=== PATIENT | male | born 1995 | race Caucasian/White ===

== ENCOUNTER 2016-12-18 18:16 | Emergency (ER) | payer OTHER ==
[2016-12-18 18:27] VITALS: TEMP 98; BMI 19.2
--- NOTE | 2016-12-18 19:27 | PDOC ---
Attending Attestation - Resident Resident Name: Sav Gibbs - HPI HPI: 12/18/16 21:24 Pt comes with abd pain. No fever, N/D/V and he is eating without diffuclty. No dysuria, but he has a hx of gallstones. - Physicial Exam PE: 12/18/16 21:25 Abd soft Nt ND and no rebound or guarding. No flank pain and no fever. Rest of exam normal also. Pupils are bilaterally teardrop shaped since . - Medical Decision Making 12/18/16 21:26 CBC and COMP and vitals normal. UA pending. Abd XR pending 12/18/16 23:53 Patient Name: Ada Beth THIS IS A PRELIMINARYREPORT FROM [facility] EXAM: X-ray abdomen and pelvis IMAGES: 3 INDICATION: Diarrhea and abdominal pain DATE OF SERVICE: 2016-12-18 21:34:07.0 COMPARISON: none FINDINGS: Lung bases are clear. There is a normal bowel gas pattern. No abnormal calcifications. They right upper quadrant densities appear to represent partially calcified cartilage of an anterior rib. No solid organomegaly. Bones and soft tissues are normal. IMPRESSION: No evidence of acute pathology. THIS DOCUMENT HAS BEEN ELECTRONICALLY SIGNED
[2016-12-18] MEDS ORDERED: SODIUM CHLORIDE 0.9% 1000 ML INFUS.BAG IV ONE (19:36)
--- NOTE | 2016-12-18 19:52 | PDOC ---
History of Present Illness - General Chief Complaint: Pain Stated Complaint: ABDOMINAL PAIN Time Seen by Provider: 12/18/16 19:09 History Source: Patient Exam Limitations: No Limitations - History of Present Illness Initial Comments: 12/18/16 19:44 The patient is a 21M with a PMH of asthma who presents with recurrent abdominal pain. The patient describes the pain as diffuse, periumbilical pain which started 3 hours ago, came on acutely, is described as a pressure-like pain and has been constant. The pain is a 8/10 and radiates to his back. He denies any sick contacts, recent travel, and eating weird foods. The pain is not positional. The patient came in last year for a similar complaint but states that it is worse this year. He has a history of kidney stones. He had 1 bout of diarrhea today which was not bloody. PSH: testicular surgery Social: Smokes hookah, no drinking or drugs Allergies: NKDA Past History - Past Medical History Allergies/Adverse Reactions: Allergies Allergy/AdvReac Type Severity Reaction Status Date / Time No Known Allergies Allergy Verified 12/18/16 18:27 Home Medications: Ambulatory Orders Mag Hydrox/Al Hydrox/Simeth [Antacid Liquid] 355 ml PO ASDIR 11/07/15 Ondansetron [Zofran Odt -] 4 mg SL TID #6 od.tablet 11/07/15 Asthma: Yes - Psycho/Social/Smoking Cessation Hx Suicidal Ideation: No Smoking History: Never smoked Information on smoking cessation initiated: No Substance Use Type: None Review of Systems - Review of Systems Able to Perform ROS?: Yes Is the patient limited German proficient: No Constitutional: No: Chills, Fever, Loss of Appetite, Night Sweats, Unintentional Wgt. Loss Respiratory: No: Cough, Shortness of Breath Cardiac (ROS): No: Chest Pain ABD/GI: Yes: Diarrhea. No: Constipated, Nausea, Poor Appetite, Vomiting, Indigestion : No: Burning, Dysuria, Discharge, Frequency, Hematuria, Testicular Pain *Physical Exam - Vital Signs Last Vital Signs Temp Pulse Resp BP Pulse Ox 98 F 74 18 117/65 99 12/18/16 18:24 12/18/16 18:24 12/18/16 18:24 12/18/16 18:24 12/18/16 18:24 - Physical Exam General Appearance: Yes: Nourished, Appropriately Dressed. No: Apparent Distress Respiratory/Chest: positive: Lungs Clear, Normal Breath Sounds. negative: Chest Tender, Respiratory Distress Cardiovascular: positive: Regular Rhythm, Regular Rate, S1, S2 Gastrointestinal/Abdominal: positive: Normal Bowel Sounds, Flat, Guarding. negative: Tender, Pulsatile Mass Musculoskeletal: positive: CVA Tenderness (L) Integumentary: positive: Dry, Warm Neurologic: positive: Fully Oriented, Alert, Normal Mood/Affect, Normal Response ED Treatment Course - LABORATORY CBC & Chemistry Diagram: 12/18/16 20:00 12/18/16 20:00 Medical Decision Making - Medical Decision Making 12/18/16 20:01 The patient is a 21M with a PMH of asthma who has recurrent abdominal pain which has worsened acutely. The patient is laying comfortably in bed. In my exam , he was very guarded so I called my attending immediately. His abdomen was soft and nontender for my attending. I was worried about appendicitis or testicular torsion. He has no complaints. I have ordered basic labs and a UA. I will do a flat plate image of his abdomen to r/o acute pathology. 12/18/16 23:47 Patient's labs WNL. Imaging was sent to imaging work environment safety inspector. Questionable hepatomegaly/colon pathology. I had an extended discussion with the patient regarding follow up with a GI doctor. The patient expressed concern because he lives far from home. I informed him to get a new PCP at school and have the referral done there. Patient desired a sandwich and is ready for d/c. *DC/Admit/Observation/Transfer Diagnosis at time of Disposition: Abdominal pain Qualifiers: Abdominal location: periumbilical Qualified Code(s): R10.33 - Periumbilical pain - Discharge Dispostion Disposition: HOME Condition at time of disposition: Stable Admit: No - Patient Instructions Printed Discharge Instructions: DI for Abdominal Pain-Adult Additional Instructions: Please return to the ER if symptoms persist, worsen, or new symptoms arise. - Attestations Physician Attestion: 12/18/16 23:49 I, Dr. Sav Gibbs, attest that this document has been prepared under my direction and personally reviewed by me in its entirety. I further attest, that it accurately reflects all work, treatment, procedures and medical decision -making performed by me.
[2016-12-18 20:52] LABS: MCH 30.8 pg (25.7-33.7); MCHC 33.5 g/dl (32.0-35.9); MEAN CELL VOLUME 91.9 fl (80-96); MEAN PLT VOLUME 7.7 fl (7.5-11.1); PLATELET COUNT 227 K/MM3 (134-434); RDW 12.2 % (11.9-15.9); WHITE BLOOD COUNT 8.1 K/mm3 (4.0-10.0)
[2016-12-18 21:16] LABS: ALBUMIN 4.5 g/dl (3.4-5.0); ANION GAP 4 (8-16); CALCIUM 9.1 mg/dL (8.5-10.1); CO2 32 mmol/L (21-32); GLUCOSE,RANDOM 87 mg/dL (74-106); SGOT/AST 29 U/L (15-37); SGPT/ALT 29 U/L (12-78)
[2016-12-18 21:18] LABS: ALK PHOS 75 U/L (45-117); BILIRUBIN,TOTAL 0.8 mg/dL (0.2-1.0); CREATININE 0.8 mg/dL (0.7-1.3); TOT PROT 7.5 g/dl (6.4-8.2)
[2016-12-18 23:53] LABS: URINE APPEARANCE CLEAR; URINE BILIRUBIN NEGATIVE (NEGATIVE); URINE BLOOD NEGATIVE (NEGATIVE); URINE COLOR YELLOW; URINE GLUCOSE (UA) NEGATIVE (NEGATIVE); URINE KETONE NEGATIVE (NEGATIVE); URINE LEUK ESTERASE NEGATIVE (NEGATIVE); URINE NITRITE NEGATIVE (NEGATIVE); URINE PROTEIN NEGATIVE (NEGATIVE); URINE UROBILINOGEN NEGATIVE mg/dL (0.2-1.0)
[2016-12-18] MEDS ORDERED: LACTULOSE 20 GM/30 ML UDC (FOR ORAL USE ONLY) PO ONE (23:54)
[2016-12-18 23:58] VITALS: BP 120/70; PULSE 76
[2016-12-19] MEDS ORDERED: LACTULOSE 20 GM/30 ML UDC (FOR ORAL USE ONLY) ONE (00:01)
== END 2016-12-19 00:10 | disposition home or self-care (01) ==
LOC: JER 18:16
DX: R10.33 Periumbilical pain (principal); Z87.09 Personal history of other diseases of the respiratory system
CPT/HCPCS: 36415; 74020-TC; 80053; 81003; 83690; 85027; 99284-25

== ENCOUNTER 2017-12-18 01:07 | Emergency (ER) | payer OTHER ==
[2017-12-18 01:24] VITALS: BP 123/69; PULSE 77; TEMP 98.3; BMI 19.2
[2017-12-18] MEDS ORDERED: FAMOTIDINE 20 MG/50 ML IVPB 20 MG/50 ML MG IVPB ONE ×2 (02:59→03:04)
[2017-12-18] MEDS ORDERED: KETOROLAC TROMETHAMINE 30 MG/1 ML VIAL IVPUSH ONE (02:59)
[2017-12-18] MEDS ORDERED: SODIUM CHLORIDE 0.9% 500 ML INFUS.BAG IV ONE (02:59)
[2017-12-18] MEDS ORDERED: KETOROLAC TROMETHAMINE 30 MG/1 ML VIAL ONE (03:03)
--- NOTE | 2017-12-18 03:10 | PDOC ---
History of Present Illness - General Chief Complaint: Pain Stated Complaint: ABD PAIN Time Seen by Provider: 12/18/17 01:52 History Source: Patient Exam Limitations: No Limitations - History of Present Illness Initial Comments: 12/18/17 02:57 Patient is a 22 year old male with h/o asthma, undescended testicle c/o abd pain since yesterday. States that the pain is 10/10, sharp, stabbing in the lower abd. Yesterday the pain lasted for few hours but then went away. Tonight the pain started about 2 hours ago has been continuous and was assoc with 1 episode of nausea and vomiting. States no alleviating or aggravating factors. Denies fever, chills. PMD: Dr. Luong PMHX: as above PSOCHX: neg cig, drug, etoh ALL: NKDA GENERAL/CONSTITUTIONAL: [No fever or chills. No weakness. No weight change.] HEAD, EYES, EARS, NOSE AND THROAT: [No change in vision. No ear pain or discharge. No sore throat.] CARDIOVASCULAR: [No chest pain or shortness of breath.] RESPIRATORY: [No cough, wheezing, or hemoptysis.] GASTROINTESTINAL: (+) nausea, vomiting, diarrhea (-) constipation. No rectal bleeding.] GENITOURINARY: [No dysuria, frequency, or change in urination.] MUSCULOSKELETAL: [No joint or muscle swelling or pain. No neck or back pain.] SKIN AND BREASTS: [No rash or easy bruising.] NEUROLOGIC: [No headache, vertigo, loss of consciousness, or loss of sensation.] PSYCHIATRIC: [No depression or anxiety.] ENDOCRINE: [No increased thirst. No abnormal weight change.] HEMATOLOGIC/LYMPHATIC: [No anemia, easy bleeding, or history of blood clots.] ALLERGIC/IMMUNOLOGIC: [No hives or skin allergy. No latex allergy.] GENERAL: [The patient is awake, alert, and fully oriented, in mild distress.] HEAD: [Normal with no signs of trauma.] EYES: [Pupils equal, round and reactive to light, extraocular movements intact, sclera anicteric, conjunctiva clear.] ENT: [Ears normal, nares patent, oropharynx clear without exudates. Moist mucous membranes.] NECK: [Normal range of motion, supple without lymphadenopathy, JVD, or masses.] LUNGS: [Breath sounds equal, clear to auscultation bilaterally. No wheezes, and no crackles.] HEART: [Regular rate and rhythm, normal S1 and S2 without murmur, rub.] ABDOMEN: [Soft, (+) tenderness to the lower abd, normoactive bowel sounds. No guarding, no rebound. No masses.] : descended testicle left > right, nontender, no penile discharge, no lesion , no hernia, (+) creamasteric reflex EXTREMITIES: [Normal range of motion, no edema. No clubbing or cyanosis. No cords, erythema, or tenderness.] NEUROLOGICAL: [Cranial nerves II through XII grossly intact. Normal speech, normal gait.] PSYCH: [Normal mood, normal affect.] SKIN: [Warm, Dry, normal turgor, no rashes or lesions noted.] Past History - Past Medical History Allergies/Adverse Reactions: Allergies Allergy/AdvReac Type Severity Reaction Status Date / Time No Known Allergies Allergy Verified 12/18/17 01:24 Home Medications: Ambulatory Orders Budesonide/Formeterol Fumarate [SYMBICORT 160/4.5mcg -] 1 inh PO BID PRN Asthma: Yes COPD: No Disorders: Yes (GASTRITIS) - Immunization History Immunization Up to Date: Yes - Suicide/Smoking/Psychosocial Hx Smoking History: Never smoked Have you smoked in the past 12 months: No Information on smoking cessation initiated: No Hx Alcohol Use: No Drug/Substance Use Hx: No Substance Use Type: None *Physical Exam - Vital Signs Last Vital Signs Temp Pulse Resp BP Pulse Ox 98.3 F 77 18 123/69 98 12/18/17 01:20 12/18/17 01:20 12/18/17 01:20 12/18/17 01:20 12/18/17 01:20 ED Treatment Course - LABORATORY CBC & Chemistry Diagram: 12/18/17 03:14 12/18/17 03:14 Medical Decision Making - Medical Decision Making 12/18/17 02:57 Patient is a 22 year old male with h/o asthma c/o abd pain since yesterday R/o gastroenteritis vs appendicitis labs, pain meds IVF reassess patient with bs 12/18/17 07:04 Patient Full Name: NIRMALA ALVARADO Patient Accession No: [id number] Patient : 1995 Reason for Exam: LOWER ABDOMINAL PAIN Referring Physician: Patient Name: JENNY SILVESTRE THIS IS A PRELIMINARY REPORT FROM [facility] DATE OF SERVICE: 2017-12-18 05:37:25 IMAGES: 396 EXAM: CT ABDOMEN \T\ PELVIS CT WITH CONTR HISTORY: Lower abdominal pain COMPARISON: None. FINDINGS: Abdomen Liver: Normal Spleen: Normal Pancreas: Normal Gallbladder: Normal Stomach: Normal Small bowel: Normal Large bowel: Normal Appendix: Normal Adrenals:Normal Kidneys: Normal Vascular: Normal Lymphatic: Normal Peritoneal: No free peritoneal air or fluid Pelvis: Prostate: normal Rectum: Normal Bladder: Normal The inferior thorax: Normal General: Skeletal: There is bilateral L5 spondylolysis and 5 mm spondylolisthesis Abdominal wall: Normal IMPRESSION: No acute findings L5 spondylolysis and spondylolisthesis Individualized dose optimization techniques were used for this CT. THIS DOCUMENT HAS BEEN ELECTRONICALLY SIGNED Hunter Castro MD 12/18/2017 05:55 EST M.D. Please call [facility] Team Member [phone]) with questions. INTERPRETING RADIOLOGIST: Hunter Castro MD Electronically Signed: Dec 18, 2017 05:57AM EDT 12/18/17 07:05 patient is improved currently mercado no pain, tolerating by mouth. I discussed the physical exam findings, ancillary test results and final diagnoses with the patient. I answered all of the patient's questions. The patient was satisfied with the care received and felt comfortable with the discharge plan and treatment plan. The Patient agrees to follow up with the primary care physician within 24-72 hours. *DC/Admit/Observation/Transfer Diagnosis at time of Disposition: Gastroenteritis - Discharge Dispostion Disposition: HOME Condition at time of disposition: Stable - Referrals - Patient Instructions Printed Discharge Instructions: DI for Viral Gastroenteritis -- Adult Additional Instructions: Your Discharge Instructions: You must call primary care physician within 24 hours to arrange follow-up. Return to the Emergency Department with any new, persistent or worsening symptoms, for fever, chills, SOB, dizziness or any other concerning changes that may occur. - Post Discharge Activity Forms/Work/School Notes: Back to Work
[2017-12-18 03:22] LABS: BASO % 0.5 % (0-2.0); EOS % 12.7 % (0-4.5); HEMATOCRIT 39.9 % (35.4-49); HEMOGLOBIN 13.6 GM/dL (11.7-16.9); LYMPH % 32.4 % (8-40); MCHC 34.1 g/dl (32.0-35.9); MEAN CELL VOLUME 90.8 fl (80-96); MEAN PLT VOLUME 8.2 fl (7.5-11.1); MONO % 9.2 % (3.8-10.2); NEUT % 45.2 % (42.8-82.8); PLATELET COUNT 265 K/MM3 (134-434); RBC 4.39 M/mm3 (4.00-5.60); RDW 11.4 % (11.9-15.9); WHITE BLOOD COUNT 5.3 K/mm3 (4.0-10.0)
[2017-12-18 03:44] LABS: ALBUMIN 4.5 g/dl (3.4-5.0); ALK PHOS 76 U/L (45-117); ANION GAP 7 (8-16); BILIRUBIN,TOTAL 0.4 mg/dL (0.2-1.0); BLOOD UREA NITROGEN 15 mg/dL (7-18); CALCIUM 9.2 mg/dL (8.5-10.1); CHLORIDE 99 mmol/L (98-107); CO2 31 mmol/L (21-32); CREATININE 1.1 mg/dL (0.7-1.3); GLUCOSE,RANDOM 97 mg/dL (74-106); LIPASE 100 U/L (73-393); POTASSIUM 3.7 mmol/L (3.5-5.1); SGOT/AST 24 U/L (15-37); SGPT/ALT 31 U/L (12-78); SODIUM 137 mmol/L (136-145); TOT PROT 7.9 g/dl (6.4-8.2)
[2017-12-18 04:46] LABS: URINE APPEARANCE CLEAR; URINE BILIRUBIN NEGATIVE (<2.0 mg/dL); URINE COLOR LTYELLOW; URINE GLUCOSE (UA) NEGATIVE (NEGATIVE); URINE KETONE NEGATIVE (NEGATIVE); URINE LEUK ESTERASE NEGATIVE (NEGATIVE); URINE NITRITE NEGATIVE (NEGATIVE); URINE PROTEIN NEGATIVE (NEGATIVE); URINE UROBILINOGEN NEGATIVE mg/dL (0.2-1.0)
== END 2017-12-18 07:27 | disposition home or self-care (01) ==
LOC: JER 01:07
PROC: 3E033GC Introduction of Other Therapeutic Substance into Peripheral Vein, Percutaneous Approach (ICD-10-PCS; principal; 2017-12-18)
PROC: 3E0333Z Introduction of Anti-inflammatory into Peripheral Vein, Percutaneous Approach (ICD-10-PCS; 2017-12-18)
DX: K52.9 Noninfective gastroenteritis and colitis, unspecified (principal); J45.909 Unspecified asthma, uncomplicated; Q53.9 Undescended testicle, unspecified
CPT/HCPCS: 36415; 74177-TC; 80053; 81003; 83690; 85025; 96365; 96375; 99283-25

== ENCOUNTER 2019-12-17 14:29 | Emergency (ER) | payer OTHER ==
--- NOTE | 2019-12-17 14:37 | PDOC ---
Rapid Medical Evaluation Time Seen by Provider: 12/17/19 14:35 Medical Evaluation: Allergies Allergy/AdvReac Type Severity Reaction Status Date / Time No Known Allergies Allergy Verified 02/05/18 09:36 12/17/19 14:35 CC: n/v/d 2 weeks ago and went to an urgent clinic , was tested for covid which was - and s/s resolved. But returned yesterday again now with worsening abd pain Exam: vss, epigastric discomfort, no vomiting noted Plan: labs, urine, zofran Discharge Disposition - Diagnosis Abdominal pain - Referrals - Patient Instructions - Post Discharge Activity
[2019-12-17 14:38] VITALS: BP 118/60; PULSE 83; TEMP 98.6; BMI 19.2
[2019-12-17] MEDS ORDERED: SODIUM CHLORIDE 1,000 ML IV STA (14:39)
[2019-12-17] MEDS ORDERED: ACETAMINOPHEN 1000 MG/100 ML VIAL (NON FORMULARY) IVPB ONE (14:39)
[2019-12-17] MEDS ORDERED: ONDANSETRON 4 MG/2 ML VIAL IVPUSH ONE (14:39)
[2019-12-17] MEDS ORDERED: ACETAMINOPHEN INJECTION 100 ML IVPB ONE (14:57)
--- NOTE | 2019-12-17 15:11 | PDOC ---
History of Present Illness - General Chief Complaint: Pain Stated Complaint: ABD PAIN Time Seen by Provider: 12/17/19 14:35 History Source: Patient Exam Limitations: No Limitations - History of Present Illness Travel History: No Initial Comments: 12/17/19 15:03 HISTORY OF PRESENT ILLNESS: 24-year-old male denies medical history presents emergency department for evaluation of diffuse abdominal pain intermittently over the past 2 weeks. Patient reports he was seen and evaluated at urgent care center 2 weeks ago and was told all his testing was negative. Patient reports having nonbilious nonbloody vomiting and loose green stools which started appr oximately 3 days ago. Patient reports is having difficulty tolerating solid foods but is drinking liquids such as water and Gatorade without difficulty. No recent travel or sick contacts. PAST MEDICAL HISTORY: Denies past medical history SURGICAL HISTORY: Denies ALLERGIES: No known drug allergies REVIEW OF SYSTEMS General/Constitutional: Denies fever or chills. Denies weakness, weight change. HEENT: Denies change in vision. Denies ear pain or discharge. Denies sore throat. Cardiovascular: Denies chest pain or shortness of breath. Respiratory: Denies cough, wheezing, or hemoptysis. Gastrointestinal: See HPI Genitourinary: Denies dysuria, frequency, or change in urination. Musculoskeletal: Denies joint or muscle swelling or pain. Denies neck or back pain. Skin and breasts: Denies rash or easy bruising. Neurologic: Denies headache, vertigo, loss of consciousness, or loss of sensation. Psychiatric: Denies depression or anxiety. Endocrine: Denies increased thirst. Denies abnormal weight change. Hematologic/Lymphatic: Denies anemia, easy bleeding, or history of blood clots. Allergic/Immunologic: Denies hives or skin allergy. Denies latex allergy. PHYSICAL EXAM General Appearance: Well-appearing, appropriately dressed. No apparent distress, no intoxication. Cardiovascular: RRR. S1, S2. No JVD, murmur, bradycardia, tachycardia. Vascular Pulses: Dorsalis-Pedis (R): 2+, Dorsalis-Pedis (L): 2+ Gastrointestinal/Abdominal: Normal bowel sounds. Abdomen soft, non-distended. No tenderness or rebound tenderness. No organomegaly, pulsatile mass, guarding, hernia, hepatomegaly, splenomegaly. Lymphatic: No adenopathy, tenderness. Past History - Medical History Allergies/Adverse Reactions: Allergies Allergy/AdvReac Type Severity Reaction Status Date / Time No Known Allergies Allergy Verified 12/17/19 14:38 Home Medications: Ambulatory Orders Oxycodone HCl/Acetaminophen [Percocet 5-325 mg Tablet] 1 tab PO Q4H PRN 02/05/18 Ondansetron [Zofran -] 4 mg PO TID PRN #21 tablet 12/17/19 Asthma: Yes COPD: No Disorders: Yes (GASTRITIS) - Surgical History Appendectomy: Yes (12/2017) - Immunization History Immunization Up to Date: Yes - Psycho-Social/Smoking History Smoking History: Never smoked Have you smoked in the past 12 months: No *Physical Exam - Vital Signs Last Vital Signs Temp Pulse Resp BP Pulse Ox 98.6 F 83 18 118/60 100 12/17/19 14:31 12/17/19 14:31 12/17/19 14:31 12/17/19 14:31 12/17/19 14:31 ED Treatment Course - LABORATORY CBC & Chemistry Diagram: 12/17/19 15:10 12/17/19 15:10 Medical Decision Making - Medical Decision Making 12/17/19 15:11 A/P: 24-year-old male with diffuse abdominal pain intermittent over 2 weeks now with nonbloody nonbilious vomiting and loose green stools for 3 days Abdomen soft nontender nondistended. No guarding is present. Most likely gastroenteritis Laboratory testing including lipase Urinalysis Tylenol 1 g IV Zofran 4 mg IV push 1 L normal saline IV bolus Reassess-low threshold for imaging for laboratory abnormalities. 12/17/19 16:33 Laboratory Tests 12/17/19 12/17/19 12/17/19 15:10 15:10 15:55 WBC 3.8 L RBC 4.47 Hgb 13.9 Hct 41.0 MCV 91.8 MCH 31.2 MCHC 34.0 RDW 11.7 L Plt Count 288 MPV 8.5 D Absolute Neuts (auto) 2.5 Neutrophils % 64.7 Lymphocytes % 23.6 D Monocytes % 7.6 Eosinophils % 3.5 Basophils % 0.6 Nucleated RBC % 0 Sodium 139 Potassium 4.2 Chloride 103 Carbon Dioxide 29 Anion Gap 7 L BUN 9.0 Creatinine 1.0 Est GFR (CKD-EPI)AfAm 120.70 Est GFR (CKD-EPI)NonAf 104.14 Random Glucose 100 Calcium 9.9 Magnesium 2.4 Total Bilirubin 0.7 AST 15 ALT 20 Alkaline Phosphatase 75 Total Protein 8.8 H Albumin 5.1 H Lipase 70 L Urine Color Yellow Urine Appearance Clear Urine pH >= 9.0 H D Ur Specific [place] 1.014 Urine Protein Negative Urine Glucose (UA) Negative Urine Ketones Negative Urine Blood Negative Urine Nitrite Negative Urine Bilirubin Negative Urine Urobilinogen 0.2 Ur Leukocyte Esterase Negative Reevaluation of the abdomen reveals a benign abdomen and patient reports he currently feels better. Patient no longer has nausea and is requesting discharge at this time. Patient is to follow-up with his primary doctor as previously scheduled appointment next . I discussed the physical exam findings, ancillary test results and final diagnoses with the patient. I answered all of the patient's questions. The patient was satisfied with the care received and felt comfortable with the discharge plan and treatment plan. The patient will call their primary care physician within 24 hours to arrange follow-up and will return to the Emergency Department with any new, persistent or worsening symptoms. Portions of this note have been documented using voice recognition software. As a result, errors may occur in the forms builder process. Effort has been made to correct all grammatical and forms builder error, but some may have been missed which may produce sporadic inaccurate forms builder or nonsensical phrases. Discharge - Discharge Information Problems reviewed: Yes Clinical Impression/Diagnosis: Abdominal pain Qualifiers: Abdominal location: generalized Qualified Code(s): R10.84 - Generalized abdominal pain Condition: Fair Disposition: HOME - Admission No - Additional Discharge Information Prescriptions: Ondansetron [Zofran -] 4 mg PO TID PRN #21 tablet PRN Reason: Nausea And/Or Vomiting - Follow up/Referral Referrals: Todd Bales MD [Primary Care Provider] - - Patient Discharge Instructions Additional Instructions: Rest, drink lots of fluids: Teas, water, soups Lorrie alex, carbonated beverages for the bubbles May try peppermint teas Avoid heavy , spicy or fatty foods until symptoms have resolved Avoid contact with others until fevers and symptoms resolved Lots of handwashing and good hygiene Continue [id number]-qnokwve medications for symptomatic relief Tylenol or Motrin for fever and pain May use Zofran-one tablet as needed for nausea. May repeat times one every 8 hours Followup with private physician in one to 2 days as needed Return to emergency department for worsened symptoms, fevers, dehydration - Post Discharge Activity
[2019-12-17] MEDS ORDERED: ONDANSETRON 4 MG/2 ML VIAL ONE (15:12)
[2019-12-17 15:41] LABS: BASO % 0.6 % (0-2.0); EOS % 3.5 % (0-4.5); HEMOGLOBIN 13.9 GM/dL (11.7-16.9); LYMPH % 23.6 % (8-40); MCH 31.2 pg (25.7-33.7); MEAN CELL VOLUME 91.8 fl (80-96); MEAN PLT VOLUME 8.5 fl (7.5-11.1); MONO % 7.6 % (3.8-10.2); NEUT % 64.7 % (42.8-82.8); PLATELET COUNT 288 K/MM3 (134-434); RBC 4.47 M/mm3 (4.00-5.60); RDW 11.7 % (11.9-15.9); WHITE BLOOD COUNT 3.8 K/mm3 (4.0-10.0)
[2019-12-17 16:08] LABS: PH,URINE >= 9.0 (5.0-8.0); URINE APPEARANCE CLEAR; URINE BILIRUBIN NEGATIVE (NEGATIVE); URINE COLOR YELLOW; URINE GLUCOSE (UA) NEGATIVE (NEGATIVE); URINE KETONE NEGATIVE (NEGATIVE); URINE LEUK ESTERASE NEGATIVE (NEGATIVE); URINE NITRITE NEGATIVE (NEGATIVE); URINE PROTEIN NEGATIVE (NEGATIVE); URINE UROBILINOGEN 0.2 mg/dL (0.2-1.0)
[2019-12-17 16:10] LABS: ALBUMIN 5.1 g/dl (3.4-5.0); BILIRUBIN,TOTAL 0.7 mg/dL (0.2-1); CALCIUM 9.9 mg/dL (8.5-10.1); MAGNESIUM 2.4 mg/dL (1.8-2.4); POTASSIUM 4.2 mmol/L (3.5-5.1); TOT PROT 8.8 g/dl (6.4-8.2)
== END 2019-12-17 16:57 | disposition home or self-care (01) ==
LOC: JER 14:29
PROC: 3E033GC Introduction of Other Therapeutic Substance into Peripheral Vein, Percutaneous Approach (ICD-10-PCS; principal; 2019-12-17)
PROC: 3E0337Z Introduction of Electrolytic and Water Balance Substance into Peripheral Vein, Percutaneous Approach (ICD-10-PCS; principal; 2019-12-17)
DX: R10.84 Generalized abdominal pain (principal)
CPT/HCPCS: 36415; 80053; 81003; 83690; 83735; 85025; 96361; 96374; 96375; 99284-25; J0131

== ENCOUNTER 2023-07-31 12:55 | Emergency (ER) | payer OTHER ==
[2023-07-31 13:11] VITALS: BP 98/56; PULSE 89; RESP 18; TEMP 99.1; BMI 20.3
[2023-07-31] MEDS ORDERED: ONDANSETRON 4 MG/2 ML VIAL ONE (15:23)
[2023-07-31] MEDS ORDERED: ACETAMINOPHEN INJECTION 100 ML IVPB ONE (15:23)
[2023-07-31] MEDS: ONDANSETRON 4 MG/2 ML VIAL IVPUSH ONE (15:38)
[2023-07-31] MEDS: SODIUM CHLORIDE 0.9% 500 ML INFUS.BAG IV ONE (15:42)
[2023-07-31] MEDS: ACETAMINOPHEN 1000 MG/100 ML BAG IVPB ONE (15:43)
[2023-07-31 15:55] LABS: PH,URINE 6.5 (5.0-8.0); URINE APPEARANCE CLEAR; URINE BILIRUBIN NEGATIVE (NEGATIVE); URINE COLOR YELLOW; URINE GLUCOSE (UA) NEGATIVE (NEGATIVE); URINE KETONE NEGATIVE (NEGATIVE); URINE LEUK ESTERASE NEGATIVE (NEGATIVE); URINE NITRITE NEGATIVE (NEGATIVE); URINE PROTEIN NEGATIVE (NEGATIVE); URINE UROBILINOGEN 0.2 mg/dL (0.2-1.0)
== END 2023-07-31 18:22 | disposition home or self-care (01) ==
LOC: JERFT 12:55
PROC: 3E030NZ Introduction of Analgesics, Hypnotics, Sedatives into Peripheral Vein, Open Approach (ICD-10-PCS; principal; 2023-07-31)
PROC: 3E030GC Introduction of Other Therapeutic Substance into Peripheral Vein, Open Approach (ICD-10-PCS; 2023-07-31)
DX: R51.9 Headache, unspecified (principal); M54.9 Dorsalgia, unspecified; R11.0 Nausea; R63.0 Anorexia; R53.83 Other fatigue; M79.10 Myalgia, unspecified site; R68.83 Chills (without fever); A08.4 Viral intestinal infection, unspecified; Z20.822 Contact with and (suspected) exposure to COVID-19
CPT/HCPCS: 0241U-QW; 81003; 99284-25; J0131